=== PATIENT | female | born 2000 | race Caucasian/White ===

== ENCOUNTER 2018-09-15 09:42 | Emergency (ER) | payer MEDICAID ==
[~2018-09-15] VITALS: Ht 162.6 cm; Wt 63.5 kg
[2018-09-15 09:52] VITALS: BP_SYST 115
[2018-09-15 10:30] VITALS: BP_SYST 116
== END 2018-09-15 10:30 | disposition home or self-care (01) ==
LOC: SED 09:42
DX: J06.9 Acute upper respiratory infection, unspecified (principal)
CPT/HCPCS: 99283